=== PATIENT | female | born 1995 | race Caucasian/White ===

== ENCOUNTER 2017-12-24 17:18 | Emergency (ER) | payer OTHER ==
[2017-12-24] MEDS ORDERED: NS 500 ML IV ONE (17:25)
[2017-12-24] MEDS ORDERED: EPINEPHrine 1 MG/ML INJ IM ONE (17:25)
[2017-12-24] MEDS ORDERED: RANITIDINE 50 MG/2 ML VIAL IVP ONE (17:25)
[2017-12-24] MEDS ORDERED: methylPREDNISolone SOD SUCC 125 MG/2 ML VIAL IVP ONE (17:25)
--- NOTE | 2017-12-24 17:29 | EDPHY ---
H & P Time Seen by Provider: 12/24/17 17:25 HPI/ROS: HPI Allergic reaction. 22-year-old female by private vehicle with parents and friend. 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 She does not carry an EpiPen. She had a bagel with apparently some seeds or knots on it. This was about an hour to an hour and a half prior to arrival. Shortly thereafter she developed a sensation of tightness and swelling in her throat as well as swelling around her eyes and her lips. ROS: Constitutional: No fever, no chills. No weakness. Eyes: No discharge. No changes in vision. ENT: No sore throat. As above. No nasal congestion or rhinorrhea. Respiratory: No cough. No shortness of breath. Cardiac: No chest pain, no palpitations. Gastrointestinal: No abdominal pain, no vomiting, no diarrhea. Genitourinary: No hematuria. No dysuria or increased frequency with urination. Musculoskeletal: No back pain. No neck pain. No myalgias or arthralgias. Skin: No rashes. Neurological: No headache. No focal weakness or altered sensation. Past medical history: As above. Social history: Nonsmoker. Student [employer]. Here with family. Some alcohol today. Physical Exam: General Appearance: Alert, anxious but not in distress. This patient is responding to questions appropriately and in full sentences. This patient appears well-hydrated and well-nourished. Eyes: Pupils equal and round no pallor or injection. No lid edema, erythema or injection. Diffuse periorbital edema. ENT, Mouth: Mucous membranes are moist. Diffuse and mild pharyngeal edema with erythema. No significant uvular edema. No asymmetry suggestive of abscess. No erythema or exudates. No stridor on auscultation of her neck. No voice changes. Diffuse angioedema involving upper lower lip. Respiratory: There are no retractions, lungs are clear to auscultation with good air movement bilaterally. Cardiovascular: Regular rate and rhythm. No murmur. Gastrointestinal: Abdomen is soft and nontender, no masses, bowel sounds normal. No focal tenderness at McBurney's point. No Orosco sign. Neurological: Motor sensory function is grossly intact. Cranial nerves are normal. Gait is normal. Skin: Warm and dry, no rashes. Musculoskeletal: Neck is supple and nontender. Extremities are symmetrical. All joints range without pain or impingement. Psychiatric: No agitation. No depression. Database: EKG: Imaging: Procedures: Emergency department course: Vital signs reviewed. IV placed. Patient initially given 500 mcg of IM epinephrine followed by 50 mg of IV Benadryl, 50 mg of IV ranitidine and 125 mg of IV Solu-Medrol. 6:20 p.m., patient re-evaluated. Resting comfortably at this time. She is feeling much better. No voice changes. No stridor. She states that the feeling of tightness in her throat has gone. Repeat pharyngeal exam is normal. Her periorbital edema and lip edema has resolved. Her lungs are clear on auscultation bilaterally. 6:45 p.m., patient re-evaluated. She again states that she feels much better. No voice changes or stridor. 7:15 p.m., patient re-evaluated. She is requesting discharge. Repeat pulmonary exam is normal. Repeat pharyngeal exam is normal. No stridor on auscultation of her neck. No voice changes. The patient is asymptomatic. Vital signs reviewed and are normal. She feels comfortable going home with her mother and I feel she is safe for discharge at this time. She can easily return to the emergency department if needed. I will prescribe her EpiPen. She will also be prescribed a short course of antihistamines and prednisone. Follow-up and return to emergency department precautions thoroughly reviewed with her and her mother. All of their questions were answered. The patient was discharged in good condition. Differential Diagnosis: The differential diagnosis on this patient includes but is not limited to allergic reaction, anaphylaxis, anaphylactoid reaction. This represents a partial list of diagnoses considered. These considerations are based on history , physical exam, past history, reassessment and diagnostic testing. Constitutional: Initial Vital Signs Temperature (C) 36.6 C 12/24/17 17:18 Heart Rate 92 12/24/17 17:18 Respiratory Rate 14 12/24/17 17:18 Blood Pressure 121/89 H 12/24/17 17:18 O2 Sat (%) 98 12/24/17 17:18 O2 Delivery Mode Room Air Allergies/Adverse Reactions: amoxicillin Allergy (Verified 12/24/17 17:27) NUTS Allergy (Uncoded 12/24/17 17:27) SEEDS Allergy (Uncoded 12/24/17 17:27) Home Medications: Medication Instructions Recorded Albuterol 12/24/17 EPINEPHrine [Epipen 0.3 MG] 0.3 mg IM ONCE #3 syr 12/24/17 predniSONE [prednisone 20mg (RX)] 60 mg PO DAILY #9 tab 12/24/17 Medical Decision Making - Data Points Medications Given: Discontinued Medications Diphenhydramine HCl (Benadryl Injection) 50 mg IVP EDNOW ONE Stop: 12/24/17 17:26 Last Admin: 12/24/17 17:32 Dose: 50 mg Epinephrine HCl (Epinephrine) 0.5 mg IM EDNOW ONE Stop: 12/24/17 17:26 Last Admin: 12/24/17 17:25 Dose: 0.5 mg Sodium Chloride (Ns) 500 mls @ 0 mls/hr IV ONCE ONE; Wide Open PRN Reason: Protocol Stop: 12/24/17 17:26 Last Admin: 12/24/17 17:33 Dose: 500 mls Methylprednisolone Sodium Succinate (Solu-Medrol) 125 mg IVP EDNOW ONE Stop: 12/24/17 17:26 Last Admin: 12/24/17 17:27 Dose: 125 mg Ranitidine HCl (Zantac) 50 mg IVP EDNOW ONE Stop: 12/24/17 17:26 Last Admin: 12/24/17 17:33 Dose: 50 mg Departure - Departure Disposition: Home, Routine, Self-Care Clinical Impression: Allergic reaction Condition: Good Instructions: General Allergic Reaction (ED) Additional Instructions: Read and follow provided instructions. Follow-up with your primary care physician on Wednesday for re-evaluation as needed. Take prednisone medication as prescribed. Benadryl: You can take 50 mg every 6-8 hours for the next 2 days. Pepcid: You can take 20-40 mg twice daily for the next 2 days. Return to the emergency department for worsening symptoms, any sensation of swelling or fullness in her throat, difficulty breathing or swallowing or other serious concerns. Referrals: NONE *PRIMARY CARE P,. [Primary Care Provider] - As per Instructions Prescriptions: EPINEPHrine [Epipen 0.3 MG] 0.3 mg IM ONCE #3 syr predniSONE [prednisone 20mg (RX)] 60 mg PO DAILY #9 tab
[2017-12-24 19:28] VITALS: BP 125/74
== END 2017-12-24 19:33 | disposition home or self-care (01) ==
DX: T78.1XXA Other adverse food reactions, not elsewhere classified, initial encounter (principal); E86.9 Volume depletion, unspecified
CPT/HCPCS: 96374; J0171; J1200; J2930